=== PATIENT | female | born 1985 | race Asian ===

== ENCOUNTER → 2016-07-16 | Outpatient (CLI) | payer OTHER ==
[~2016-07-16] MED LIST: PRENTAB26 PO
[2016-07-16 20:17] LABS: URINE APPEARANCE CLEAR (CLEAR); URINE BILIRUBIN NEG (NEG); URINE COLOR YELLOW; URINE EPITHELIAL CELL AUTO >30 /lpf (0-5); URINE NITRITE NEG (NEG); URINE SPECIFIC GRAVITY 1.005 (1.000-1.030); UROBILINOGEN NEG (NEG)
[2016-07-16 20:19] LABS: MANUAL MICROSCOPIC REQUIRED? NO; REVIEW REQ? YES
== END | disposition home or self-care (01) ==
LOC: C.LABSPEC 18:24
PROVIDERS: ATTEND Obstetrics & Gynecology
DX: Z34.03 Encounter for supervision of normal first pregnancy, third trimester (principal)

== ENCOUNTER → 2016-09-10 | Outpatient (CLI) | payer OTHER | END | disposition home or self-care (01) | LOC: C.LABSPEC 17:55 | PROVIDERS: ATTEND Obstetrics & Gynecology | DX: Z34.03 Encounter for supervision of normal first pregnancy, third trimester (principal) ==

== ENCOUNTER 2016-09-23 07:41 | Inpatient (IN) | payer OTHER ==
[~2016-09-23] VITALS: Ht 157.5 cm; Wt 67.3 kg
[2016-09-23] MEDS ORDERED: PRENTAB26 PO (08:35)
[2016-09-23 08:42] VITALS: Ht 157.5 cm; Wt 67.3 kg
[2016-09-23] MEDS ORDERED: LACTATED RINGER'S 1000ML 1,000 ML IV PRN (08:46)
--- NOTE | 2016-09-23 09:17 | Medical Student: [facility] ---
Med Student History & Physical Date of Service Sep 23, 2016. Chief Complaint "I think my water broke last night" History of Present Illness Source: patient Raymundo Wyman is a 31 year old with an EDC of 10/06/2016 dated by LMP confirmed by first trimester ultrasound. She states that she thinks her water broke around 2300 yesterday, September 22. She states the fluid was clear with some light brown tinge. It soaked her underwear. She also woke up this morning with her underwear soaked again with the same fluid. She feels a lot of movement. She denies and vaginal bleeding or contractions. She does have some mild cramping. Upon arrival to Labor and Delivery, an amniosure was done and confirmed rupture of membranes. OB History No prior pregnancies. Labs from this visit: 03/06/2016: Chlamydia and GC: negative RPR: non reactive HIV: negative HBsAg: negative Rubella IgG: immune Urine culture and UA: negative and WNL H&H =32.8%, 11.0 g/dL MCV = 83.0 Platelets = 237,000 Type and Screen: A+, antibodies negative 04/24/2016: 50g 1 hr GTT = 72 Tetra AFP screen: negative 06/24/2016: 50g GTT = 99 (done in [place]) 07/16/2016: Urine cx and UA: 09/10/2016: GBS: negative INTERNAL MEDICINE PHYSICIAN ASSISTANT History Menarche: 13 LMP: 12/31/2015, definite Frequency: 24 days PAPs: no PAPs prior to care; had PAP at 1st MD visit on and was negative for intraepithelial lesions or malignancy STDs: none Past Medical History No significant past medical history. Past Surgical History none. Family History Unremarkable. 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) Allergies Coded Allergies: Amoxicillin (Verified Allergy, Intermediate, HIVES, 09/23/16) Cephalosporins (Verified Allergy, Intermediate, HIVES, 09/23/16) Levofloxacin (Verified Allergy, Intermediate, RASH, 09/23/16) Home Medications Multivit/Min/Iron/Fol Ac/Pren ( Vitamin), 1 TAB PO DAILY Review of Systems Constitutional: No chills, No fatigue, No fever Eyes: No diplopia, No worsening of vision Respiratory: No cough, No shortness of breath Cardiovascular: No chest pain, No edema, No palpitations Abdomen: No nausea, No pain, No vomiting Musculoskeletal: No calf pain, No joint pain, No swelling Genitourinary - Female: No dysuria, No urinary frequency, No urinary urgency Neurologic: No numbness/tingling, No weakness Endocrine: No excessive thirst, No excessive urination, No fatigue Hematologic / Lymphatic: No abnormal bleeding/bruising, No clotting problems Integumentary: No rash Physical Exam Vital Signs: BP: 145/67 HR: 108 bpm RR: 20 General Appearance: WD/WN, no apparent distress Respiratory/Chest: lungs clear, normal breath sounds, no respiratory distress Cardiovascular: regular rate, rhythm, no edema, no gallop, no murmur, normal peripheral pulses Abdomen / GI: non tender, + pertinent finding (gravid) Genitourinary - Female: + pertinent finding (Cervix: 1.5 cm dilated, 80% effaced and 0 station; cervix is posterior and moderate-soft) Extremities: no calf tenderness, no pedal edema Monitoring External Monitor: Category 1 tracing: Baseline FHR: 150 Moderate Variability Accelerations to 170 No decelerations Tocodynamometer: No contractions Laboratory Results Test 09/23/16 08:01 09/23/16 08:46 Assessment and Plan ASSESSMENT: Raymundo Wyman is a 31 year old with an EDC of 10/06/16 at 38 1/7 weeks who came to labor and delivery due to premature rupture of membranes. She is Blood Type A+ , Rubella immune and GBS negative. PLAN: Continuous monitoring, recording every 30 minutes. Continuous tocodynamometer, recording every 30 minutes. Patient may ambulate as tolerated. Start oxytocin infusion at 1mU/min in 2 hours if contractions do not start spontaneously.
[2016-09-23 09:18] LABS: HEMATOCRIT 36.8 % (37-47); MEAN CELL VOLUME 90.6 fL (80-100); MEAN CORPUSCULAR HGB CONC 34.2 g/dl (32-36); MEAN PLATELET VOLUME 11.1 fL (7.4-10.4); PLATELET COUNT 186 K/uL (130-400); RED BLOOD COUNT 4.06 M/uL (4.2-5.4); WHITE BLOOD COUNT 9.06 K/uL (4.8-10.8)
[2016-09-23] MEDS ORDERED: LACTATED RINGER'S 1000ML 500 ML IV PRN ×2 (11:55→15:36)
[2016-09-23] MEDS ORDERED: OXYTOCIN 30 UNITS/500ML NSS IV PRN ×2 (12:00→21:30)
[2016-09-23] MEDS: LACTATED RINGER'S 1000ML 1,000 ML IV SCH ×2 (13:34→15:35)
[2016-09-23] MEDS ORDERED: EpHEDrine SULFATE INJ 50 MG/ML AMP ONE (15:11)
[2016-09-23] MEDS ORDERED: BUPIVACAINE 0.25% 30 ML VIAL ONE (15:11)
[2016-09-23] MEDS ORDERED: FENTANYL CITRATE INJ 50 MCG/1 ML 2 ML VIAL ONE (15:12)
[2016-09-23] MEDS ORDERED: FENTANYL 2MCG/ML ROPIV 1.25MG/ML 100ML BAG EPI ONE (15:12)
[2016-09-23] MEDS ORDERED: NALOXONE HCL INJ 1 MG in SODIUM CHLORIDE 0.9% 1000ML 1,000 ML IV PRN (15:36)
[2016-09-23] MEDS ORDERED: EpHEDrine SULFATE INJ 50 MG/ML AMP IV PRN (15:45)
[2016-09-23] MEDS ORDERED: ONDANSETRON INJ 2 MG/ML 2 ML VIAL IV PRN (15:45)
[2016-09-23] MEDS ORDERED: FENTANYL 2MCG/ML ROPIV 1.25MG/ML 100ML BAG EPI PRN (15:45)
[2016-09-23] MEDS ORDERED: NALBUPHINE HCL INJ 10 MG/ML AMP IV PRN (15:45)
[2016-09-23] MEDS ORDERED: NALOXONE HCL INJ 0.4 MG/1 ML VIAL/CARP IV PRN (15:45)
[2016-09-23] MEDS ORDERED: DiphenhydrAMINE HCL 50 MG/ML VIAL IV PRN (15:45)
[2016-09-23] MEDS ORDERED: LANOLIN OINT EXT PRN ×2 (21:30)
[2016-09-23] MEDS ORDERED: ACETAMINOPHEN 325 MG TAB PO PRN (21:30)
[2016-09-23] MEDS ORDERED: SUPERCREAM 0.870 % 15GM JAR EXT PRN (21:30)
[2016-09-23] MEDS ORDERED: IBUPROFEN 600 MG TAB PO PRN (21:30)
[2016-09-23] MEDS ORDERED: BENZOCAINE 20% AER SPR 82.5 GM CAN EXT PRN (21:30)
[2016-09-23] MEDS ORDERED: ACETAMINOPHEN/CODEINE 300/30MG TAB PO PRN ×2 (21:30)
--- NOTE | 2016-09-23 22:14 | Anesthesia Procedure Note ---
Anesthesia Epidural Removal Nt Date & Time Sep 23, 2016 at 22:14 Vital Signs Pain Intensity: 0.0 Notes Mental Status: alert / awake / arousable, participated in evaluation Nausea / Vomiting: adequately controlled Pain: adequately controlled Airway Patency, RR, SpO2: stable & adequate BP & HR: stable & adequate Hydration State: stable & adequate Neuraxial Anesthesia: was administered Anesthetic Complications: no major complications apparent, pt satisfied with anesthetic care Epidural: removed without complications, with tip intact
--- NOTE | 2016-09-23 23:28 | DELIVERY SUMMARY ---
DATE OF OPERATION: 09/23/2016 Patient is a 31-year-old G1, P0 female, EDC of 10/06/2016, who presented with spontaneous rupture of membranes at approximately 2300 hours on 09/22/2016. She presented to labor and delivery on the morning of 09/23/2016, after having had several gushes of clear fluid and watery discharge. She was confirmed to be ruptured by AmniSure. She was not having any contractions at that point. The forewaters was ruptured and there was a copious amount of clear fluid present. Contractions started and were mild in nature. She was begun on Pitocin augmentation and after receiving epidural analgesia, which was effective, she progressed to full dilation and pushed effectively over an intact perineum for delivery of a live male . Nuchal cord x2, which was loose, was reduced prior to delivering the rest of the . Mouth and nasopharynx were suctioned after the shoulders and the rest of the infant was delivered. There was spontaneous crying upon delivery and the was moving all four limbs. The placenta was expressed intact with a 3-vessel cord. A second-degree perineal laceration was repaired with 3-0 and 2-0 chromic in the usual fashion. Estimated blood loss was 250 mL. Mother and were doing well after delivery. I attest to the content of the Intraoperative Record and any orders documented therein. Any exceptio ns are noted below.
[2016-09-24] VITALS (7 sets, daily range): BP systolic 90–115; BP diastolic 57–75; PULSE 85–102; TEMP 36.3–36.9; O2SAT 97–98
[2016-09-24 06:48] LABS: HEMATOCRIT 33.2 % (37-47)
--- NOTE | 2016-09-24 07:24 | Progress Note ---
Subjective Sep 24, 2016. Subjective conversation w/ patient, physical exam Ambulation: ambulating normally Voiding: no voiding problems Passing Gas: Yes Diet Tolerance: Regular Diet Lochia: Moderate Feeding Type: Breast Feeding Pain: 3/10 improving with pain Comment: Patient was seen at the bedside. No acute event overnight. Review of Systems Constitutional: No fever Respiratory: No cough, No shortness of breath Cardiac: No chest pain Abdomen: No nausea, No pain, No vomiting Female : No dysuria Denies headache Objective Vital Signs Date Time Temp Pulse Resp B/P Pulse Ox O2 Delivery O2 Flow Rate FiO2 09/24/16 03:45 36.3 88 16 96/61 97 Room Air 09/24/16 00:15 36.7 90 16 115/75 97 Room Air 09/24/16 00:15 Room Air Physical Exam General Appearance: WELL-APPEARING, WD/WN Respiratory/Chest: chest non-tender, lungs clear, normal breath sounds Cardiovascular: regular rate, rhythm Abdomen: normal bowel sounds, non tender, soft Fundus: Firm, Relation to Umbilicus (at the umbilicus) Extremities: non-tender, no calf tenderness, + pedal edema (b/l pedal edema noted) Laboratory Results Last 24 Hours Test 09/23/16 08:01 09/23/16 09:05 09/24/16 06:00 Amniotic Fluid Protein POS White Blood Count 9.06 K/uL Red Blood Count 4.06 M/uL Hemoglobin 12.6 g/dL 11.4 g/dL Hematocrit 36.8 % 33.2 % Mean Corpuscular Volume 90.6 fL Mean Corpuscular Hemoglobin 31.0 pg Mean Corpuscular Hemoglobin Concent 34.2 g/dl RDW Standard Deviation 45.6 fL RDW Coefficient of Variation 13.8 % Platelet Count 186 K/uL Mean Platelet Volume 11.1 fL Medications Current Inpatient Medications Medications (Trade) Dose Ordered Sig/Jennifer Route Start Time Stop Time Status Last Admin Dose Admin Prenat Multivit/ [place]/Iron/Folic Ac 1 tab 1 tab DAILY PO 09/24/16 08:00 10/24/16 07:59 Lactated Ringer's (Lr 1000ml) 500 ml @ 999 mls/hr Q31M PRN IV 09/23/16 11:55 10/23/16 11:54 Oxytocin (Pitocin IV) 30 units UD PRN IV 09/23/16 21:30 10/23/16 21:29 Benzocaine (Dermoplast Aero Spr) 1 appln PRN PRN EXT 09/23/16 21:30 10/23/16 21:29 09/24/16 04:02 1 APPLN Cocaine HCl (Supercream 0.870% Cr) BID PRN EXT 09/23/16 21:30 10/07/16 21:29 09/24/16 04:02 15 GM Lanolin (Lanolin Oint) PRN PRN EXT 09/23/16 21:30 10/23/16 21:29 Prenat Multivit/ [employer]/Iron/Folic Ac ( Vitamin Tab) 1 tab DAILY PO 09/24/16 08:00 10/24/16 07:59 Ibuprofen (Motrin Tab) 600 mg Q4H PRN PO 09/23/16 21:30 10/23/16 21:29 Acetaminophen (Tylenol Tab) 650 mg Q6H PRN PO 09/23/16 21:30 10/23/16 21:29 Acetaminophen/ Codeine Phosphate (Tylenol w/ Codeine #3 Tab) 1 tab Q4H PRN PO 09/23/16 21:30 10/23/16 21:29 Acetaminophen/ Codeine Phosphate (Tylenol w/ Codeine #3 Tab) 2 tab Q4H PRN PO 09/23/16 21:30 10/23/16 21:29 Bisacodyl (Dulcolax Tab) 5 mg 20 PO 09/24/16 20:00 09/24/16 20:01 Docusate Sodium (coLACE CAP) 100 mg BID PO 09/24/16 08:00 10/24/16 07:59 Assessment and Plan Post- Day#: 1 Continue Routine Care: Resident Physician Supervision Note: I interviewed and examined the patient. Discussed with Dr. Butler and agree with findings and plan as documented in the note. Any exceptions or clarifications are listed here: [None] Documented By: Marti Heath A/P: This is a 31 y/o female, , s/p normal vaginal delivery. She is ambulating and clinically stable. Plan: - Vitals signs are reviewed and WNL (Tmax 36.7 ) - Last Hgb is 12.6 - Blood type A+, GBS neg, Rubella Immune - Routine care - Encourage ambulation, monitor and control pain with medication as needed , continue with regular diet as tolerated and monitor lochia - Stool softeners and sitz bath recommended - Encourage breast feeding and educate about breast feeding
[2016-09-24] MEDS ORDERED: PRENATAL VITAMIN TAB PO SCH (08:00)
--- NOTE | 2016-09-24 08:02 | Discharge Instructions ---
Discharge Instructions Date of Service Sep 24, 2016. Admission Reason for Admission: Labor Check Discharge Discharge Diagnosis / Problem: S/p normal vaginal delivery Discharge Goals Goal(s): Routine recovery after delivery Medications Continue Dispensed Medications: supercream, dermaplast, tucks, lansinoh Activity Recommendations Activity Limitations: per Instructions/Follow-up section . Instructions / Follow-Up Instructions / Follow-Up ACTIVITY RECOMMENDATIONS: * Gradual return to full activity over the next 2-3 weeks. * No lifting - nothing heavier than baby over the next 2-3 weeks. * Do not engage in vigorous exercise, sexual activity or sports until cleared by your physician. * Do not drive or operate any motorized equipment until cleared by your physician. * You may shower/bathe daily. MEDICATIONS: For discomfort or pain, you may use Acetaminophen (Tylenol), Ibuprofen (Advil), or Naproxen (Aleve) following the package directions. For constipation you may use Colace following the package directions. BREAST CARE: If you are not breast feeding: * Wear a supportive bra 24 hours a day for one to two weeks. * Avoid stimulating your breasts and nipples as much as possible during the first few weeks after delivery. * When taking a shower, have the warm water hit your back, not breasts. * When your breasts feel full, apply ice packs. Usually three to four times a day helps ease the discomfort. * Take a mild pain medication (Tylenol / Motrin) when you are uncomfortable. If breast feeding: * Use breast milk to lubricate nipples. Lansinoh cream may be used for sore nipples. You do not need to remove cream prior to breast feeding. If using a different brand of cream, check the label for directions regarding removal of cream prior to nursing. * Wear a supportive bra. * If having problems with breasts or breast feeding, call a golf tournament consultant or your health care provider. EPISIOTOMY CARE: After delivery, if you have an episiotomy (stitches), the following steps will ease discomfort and aid healing. * For the first 24 hours after delivery, place ice packs next to your episiotomy to help reduce swelling. * After the first 24 hour-period, sitz baths, either portable or in the tub, are suggested. A shower with a shower arm sprayed over the episiotomy may be comforting. * Chayo care should be done after each voiding and bowel movement. Squirt warm water from a plastic bottle over the perineum (region of the body between the anus and urinary opening) and pat dry. * Use Dermoplast to ease discomfort. Shake container. [place] directly over the episiotomy. Place a Tucks on a clean sanitary pad next to your episiotomy. SPECIAL CARE INSTRUCTIONS: When you are discharged from the hospital, it is important for you to follow the instructions listed below: * During the first week at home, you should be able to care for yourself and your baby. In addition, the usual light household activities are encouraged. * Limit your activities to the way you feel. Do not try to clean the house or move furniture. Be sensible. * If you actively engage in sports and have done so up until the time of your delivery, you may resume these activities as soon as you feel able. This may take up to one month or even longer. Use good judgment. * Continue to take your vitamins for at least six weeks after the of your baby. * Your diet need not be limited unless you were on a special diet before your delivery. Breast-feeding mothers need around 2500 calories per day and at least 64-80 ounces of fluid per day (8 to 10 glasses). * You should eat foods from the four major food groups. Crash diets or fad diets are to be avoided. Eating lean meats, fresh fruits and vegetables, low-fat dairy products, high fiber foods and a regular exercise program, will help you get back to your pre- weight without putting your health at risk. * Constipation is sometimes a problem after delivery. Take a mild laxative as needed. If breast feeding, Milk of Magnesia is acceptable to use. You may use a suppository or Fleets enema if no episiotomy. * A daily shower or tub bath is suggested. Be sure to thoroughly and gently dry the perineum. * A bloody vaginal discharge will usually continue until around four weeks post . A small amount of bleeding may continue for as long as six weeks. Vaginal discharge changes from the bright red bleeding after delivery to pink then brownish and finally yellowish-pink before becoming white and disappearing. * Bleeding may increase with activity. Your first period may come in 4-8 weeks. If you are breast feeding, your period may be delayed even longer. * Caspian (sex) can begin whenever both you and your partner feel comfortable and do not have any form of genital infection. It is recommended that you wait at least six weeks for internal and external healing to occur. If you have questions, please talk to your health care practitioner. A condom should be used to prevent infection and . * Foreplay, gentle intercourse and lubrication is very important the first several times to prevent pain. A water-based lubricant such as K-Y jelly or Astroglide may be used. * If you have RH negative blood and your baby is RH positive, you will receive RHOGAM by injection prior to discharge. The nurse will give you a card to keep with you that has the date and place that you received RHOGAM after delivery. * During your care, you had a Rubella screen done to check for the presence of rubella antibodies in your blood. If your test was negative, you will receive a Rubella vaccine prior to discharge. This vaccine may cause a fever, soreness at the injection site and flu-like symptoms. If these symptoms persist, notify your health care practitioner. is not advised for one month after a Rubella vaccine. * Verbalizes understanding of car seat law as reviewed with patient nursing. * Car Seat hand-out given and reviewed with patient by nursing. * Shaken baby information reviewed with patient by nursing. Call you doctor if: * Heavy bleeding (saturating several pads an hour) or passing clots the size of your fist. * A fever >101 degrees F (38.3 degrees C) on two occasions four hours apart and /or chills. * Unusual pain in the pelvic or vaginal areas. * "Baby Blues" lasting longer than two weeks. If you have any questions or concerns, call your health care practitioner at . FOLLOW UP VISIT: * Please call the office at to schedule a 6 week examination. It is important you keep this appointment. It is important for you to make arrangements for either yearly or twice yearly check-ups thereafter. Current Hospital Diet Patient's current hospital diet: Regular OB Diet Discharge Diet Recommended Diet: Regular Diet, Regular OB Diet Pending Studies Studies pending at discharge: no Medical Emergencies . Who to Call and When: Medical Emergencies: If at any time you feel your situation is an emergency, please call 911 immediately. . Non-Emergent Contact Non-Emergency issues call your: Corrections Specialist Call Non-Emergent contact if: you have a fever, temperature is above 101 . . "Provider Documentation" section prepared by Erlinda Upton. . VTE Core Measure Inpt VTE Proph given/why not?: Treatment not indicated
[2016-09-24] MEDS: PRENATAL VITAMIN TAB PO SCH (08:49)
[2016-09-24] MEDS: DOCUSATE SODIUM 100 MG CAP PO SCH ×2 (08:49→21:40)
[2016-09-24] MEDS ORDERED: BISACODYL 5 MG TABEC PO SCH (20:00)
--- NOTE | 2016-09-25 06:51 | Progress Note ---
Subjective Sep 25, 2016. Subjective conversation w/ patient, physical exam, lab review Ambulation: ambulating normally Voiding: no voiding problems Passing Gas: Yes Diet Tolerance: Regular Diet Lochia: Moderate Feeding Type: Breast Feeding Pain: 4/10 improves with medication Comment: Patient was seen at the bedside. No acute event overnight. Review of Systems Constitutional: No fever Respiratory: No cough, No shortness of breath Cardiac: No chest pain Breast: No breast lump Abdomen: No nausea, No pain, No vomiting Female : No dysuria denies headache Objective Vital Signs Date Time Temp Pulse Resp B/P Pulse Ox O2 Delivery O2 Flow Rate FiO2 09/24/16 23:10 Room Air 09/24/16 23:10 36.7 102 18 111/66 97 Room Air 09/24/16 21:30 36.9 99 16 111/72 Room Air 09/24/16 17:05 Room Air 09/24/16 17:05 36.7 90 18 90/57 Room Air 09/24/16 11:20 36.8 96 16 112/70 Room Air 09/24/16 07:30 36.5 85 16 98/61 98 Room Air 09/24/16 07:30 Room Air Physical Exam General Appearance: WELL-APPEARING, WD/WN Respiratory/Chest: chest non-tender, lungs clear, normal breath sounds Cardiovascular: regular rate, rhythm Abdomen: normal bowel sounds, non tender, soft Fundus: Firm, Relation to Umbilicus (1cm tender) Extremities: non-tender, no calf tenderness, + pedal edema Medications Current Inpatient Medications Medications (Trade) Dose Ordered Sig/Jennifer Route Start Time Stop Time Status Last Admin Dose Admin Prenat Multivit/ [place]/Iron/Folic Ac 1 tab 1 tab DAILY PO 09/24/16 08:00 10/24/16 07:59 09/24/16 08:49 1 TAB Lactated Ringer's (Lr 1000ml) 500 ml @ 999 mls/hr Q31M PRN IV 09/23/16 11:55 10/23/16 11:54 Oxytocin (Pitocin IV) 30 units UD PRN IV 09/23/16 21:30 10/23/16 21:29 Benzocaine (Dermoplast Aero Spr) 1 appln PRN PRN EXT 09/23/16 21:30 10/23/16 21:29 09/24/16 04:02 1 APPLN Cocaine HCl (Supercream 0.870% Cr) BID PRN EXT 09/23/16 21:30 10/07/16 21:29 09/24/16 04:02 15 GM Lanolin (Lanolin Oint) PRN PRN EXT 09/23/16 21:30 10/23/16 21:29 Ibuprofen (Motrin Tab) 600 mg Q4H PRN PO 09/23/16 21:30 10/23/16 21:29 Acetaminophen (Tylenol Tab) 650 mg Q6H PRN PO 09/23/16 21:30 10/23/16 21:29 Acetaminophen/ Codeine Phosphate (Tylenol w/ Codeine #3 Tab) 1 tab Q4H PRN PO 09/23/16 21:30 10/23/16 21:29 Acetaminophen/ Codeine Phosphate (Tylenol w/ Codeine #3 Tab) 2 tab Q4H PRN PO 09/23/16 21:30 10/23/16 21:29 Docusate Sodium (coLACE CAP) 100 mg BID PO 09/24/16 08:00 10/24/16 07:59 09/24/16 21:40 100 MG Assessment and Plan Post- Day#: 2 Continue Routine Care: Resident Physician Supervision Note: I interviewed and examined the patient. Discussed with Dr. Upton and agree with findings and plan as documented in the note. Any exceptions or clarifications are listed here: [None] Documented By: Michelle Campos A/P: This is a 31 y/o female, , s/p normal vaginal delivery. She is ambulating and clinically stable to discharge. - Vital signs are reviewed and WNL (Tmax 36.9 ) - Last Hgb 11.4 - Blood type A+, GBS neg, Rubella Immune - No signs of depression. - Routine care - Discussed resting, feeding, pain control, mastitis, control, follow up in 6 weeks and reasons to call sooner, if necessary. - Continue with pain medication as needed, and continue vitamins. - Encourage breast feeding and educate about breast feeding - Patient understands and keen for home. - Plan to discharge home
[2016-09-25 07:20] VITALS: BP 100/64; PULSE 88; TEMP 36.7
[2016-09-25] MEDS: PRENATAL VITAMIN TAB PO SCH (08:45)
[2016-09-25] MEDS: DOCUSATE SODIUM 100 MG CAP PO SCH (08:45)
[2016-09-25 12:00] VITALS: BP_DIAS 64; PULSE 88; TEMP 36.7
--- NOTE | 2016-09-27 12:55 | EDITING REQUIRED CODING QUERY ---
CODING QUERY To promote full compliance with coding requirements relating to patient care, provider participation is requested in all cases of director external communications uncertainty. Please assist us with the question(s) below: Coding Question(s): Dr. Heath, The following is documented in the operative report: Patient is a 31-year-old G1, P0 female, EDC of 10/06/2016, who presented with spon taneous rupture of membranes at approximately 2300 hours on 09/22/2016. She presented to labor and delivery on the morning of 09/23/2016, after having had several gushes of nehemiah ar fluid and watery discharge. She was confirmed to be ruptured by AmniSure. She was not having any contractions at that point. Please clarify if the patient had: ( ) Premature rupture of membranes ( x ) Spontaneous rupture of membranes ( ) Other, please specify Physician's Response(s): Thank you for your time, PATY Cason, LEARNING SUPPORT TEACHER
== END 2016-09-25 12:00 | disposition home or self-care (01) | DRG 775 ==
LOC: C.LD 07:41 → C.OPB 07:41 → C.LD 08:49 → C.OPB 08:49 → C.MS4N 09-24 00:22
PROVIDERS: ADMIT Obstetrics & Gynecology; ATTEND Obstetrics & Gynecology
PROC: 0KQM0ZZ Repair Perineum Muscle, Open Approach (ICD-10-PCS; principal; 2016-09-23)
PROC: 10E0XZZ Delivery of Products of Conception, External Approach (ICD-10-PCS; principal; 2016-09-23)
DX: O70.1 Second degree perineal laceration during delivery (principal); O12.04 Gestational edema, complicating childbirth; O69.81X0 Labor and delivery complicated by cord around neck, without compression, not applicable or unspecified; Z37.0 Single live birth; Z3A.38 38 weeks gestation of pregnancy